=== PATIENT | male | born 1940 | race Two or more races ===

== ENCOUNTER → 2016-07-28 | Outpatient (CLI) | payer MEDICARE, OTHER ==
[~2016-07-28] MED LIST: ATACAND HCT 32/1 TAB PO; COREG CR10 MG PO; HYDROCHLOROTHIA25 MG PO; LORTAB 5/500 TA1 TA1 PO
--- NOTE | ~2016-07-28 | CR63 ---
[facility] A Service of [facility] RADIOLOGY TEXT RESULTS PATIENT: SUKHJINDER DANIEL V LOCATION: [facility] : 42 UNIT #: [id number] AGE: [address]: Luci Daniel MD SEX: M ORDER DR: [id number] [facility] [address] [place], [place] [address] [id number] O MR#: [id number] Acc #: [id number] NAME: SUKHJINDER DANIEL : 1940 SEX: M STUDY DATE/TIME: 07/28/2016 15:49 UNIT: [facility] ROOM: STUDY DESCRIPTION: CR Chest 2 View Attending Physician: Luci Daniel M.D. Referring Physician: Luci Daniel M.D. Ordering Physician: Luci Daniel M.D. Primary Care Physician: Luci Daniel M.D. MEDICAL IMAGING REPORT This report is preliminary unless electronic signature is present EXAM Chest, PA and lateral. DATE OF EXAM 07/28/2016 COMPARISON 12/05/09 HISTORY SUPPLIED Chronic cough. FINDINGS PA and lateral views are obtained. Cardiovascular pattern is normal and the lungs are clear. CONCLUSION Negative chest. Dictated by... Bakari Alvarez M.D. THIS IS AN ELECTRONICALLY VERIFIED REPORT Bakari Alvarez M.D. at 08/01/2016 7:54 AM Brooke TD: 07/28/2016 19:33 JOB #: [id number] MEDICAL IMAGING REPORT Page 1 of 1 COPY
== END | disposition home or self-care (01) ==
LOC: CRAD 15:36
DX: R05 Cough (principal)
CPT/HCPCS: 71020

== ENCOUNTER → 2016-12-19 | Outpatient (CLI) | payer MEDICARE, OTHER ==
--- NOTE | ~2016-12-19 | US77 ---
[facility] A Service of [facility] RADIOLOGY TEXT RESULTS PATIENT: SUKHJINDER DANIEL LOCATION: [facility] : 41 UNIT #: [id number] AGE: [address]: Luci Daniel MD SEX: M ORDER DR: [id number] [facility] [address] [place], [place] [address] [id number] O MR#: [id number] Acc #: [id number] NAME: SUKHJINDER DANIEL : 1940 SEX: M STUDY DATE/TIME: 12/19/2016 12:14 UNIT: [facility] ROOM: STUDY DESCRIPTION: US Kidney Bilateral Complete Attending Physician: Luci Daniel M.D. Referring Physician: Luci Daniel M.D. Ordering Physician: Luci Daniel M.D. Primary Care Physician: Luci Daniel M.D. MEDICAL IMAGING REPORT This report is preliminary unless electronic signature is present EXAM Renal ultrasound INDICATIONS Chronic kidney disease. BUN 80, creatinine 1.1. TECHNIQUE Goddard-scale and Doppler imaging kidneys and bladder. FINDINGS Right kidney measures 11.3 cm. Normal cortical thickness. A 9 mm cyst in the right kidney. Unremarkable bladder. Left kidney measures 11.9 cm. Cortical thickness 12 mm. No hydronephrosis. IMPRESSION Subcentimeter cyst in the right kidney. Otherwise, negative renal ultrasound. Dictated by... Fabien Whiteside M.D. THIS IS AN ELECTRONICALLY VERIFIED REPORT Fabien Whiteside M.D. at 12/20/2016 8:06 AM EED/karoline TD: 12/19/2016 15:51 JOB #: [id number] MEDICAL IMAGING REPORT Page 1 of 1 COPY
== END | disposition home or self-care (01) ==
LOC: CGUS 11:19
DX: E11.22 Type 2 diabetes mellitus with diabetic chronic kidney disease (principal); N18.9 Chronic kidney disease, unspecified; N28.1 Cyst of kidney, acquired
CPT/HCPCS: 76770